=== PATIENT | male | born 1990 | race Caucasian/White ===

== ENCOUNTER 2019-03-17 19:43 | Emergency (ER) | payer OTHER ==
[~2019-03-17] VITALS: Ht 165.1 cm; Wt 74.8 kg
[~2019-03-17 19:43] MED LIST: ACET-787 PO
[2019-03-17 19:54] VITALS: BP 139/87
--- NOTE | 2019-03-17 20:03 | NUR ---
PT AMBULATED TO BED 12
--- NOTE | 2019-03-17 20:16 | NUR ---
BIB FAMILY. REPORTS CALLING 911 AT 9AM YESTERDAY AFTER HAVING AN EPISODE OF RAPID HEART RATE AND TINGING UP FROM THE BASE OF HIS SKULL. STATES HE WAS SEEN AT [facility] [place] AND SENT HOME. STATES IT STARTED AGAIN, LESS SEVERE, TODAY AT 1900.
[2019-03-17] MEDS ORDERED: LORazepam 2 MG/ML VIAL IM ONE (20:35)
--- NOTE | 2019-03-17 20:45 | NUR ---
PT TAKEN TO CT SCAN
[2019-03-17 21:35] VITALS: BP 118/80
--- NOTE | 2019-03-17 21:36 | NUR ---
Patient discharged with v/s stable. Written and verbal after care instructions given and explained. Patient verbalized understanding. Ambulatory with steady gait. All questions addressed prior to discharge. Advised to follow up with PMD.
== END 2019-03-17 21:36 | disposition home or self-care (01) ==
LOC: MED 19:43
DX: R00.2 Palpitations (principal); R51 Headache; R68.2 Dry mouth, unspecified; T45.2X5A Adverse effect of vitamins, initial encounter; Z79.891 Long term (current) use of opiate analgesic; Y92.89 Other specified places as the place of occurrence of the external cause
CPT/HCPCS: 70450; 96372; 99284; J2060

== ENCOUNTER 2019-05-09 20:10 | Emergency (ER) | payer OTHER ==
[~2019-05-09] VITALS: Ht 165.1 cm; Wt 72.1 kg
[2019-05-09 20:21] VITALS: BP 122/73
--- NOTE | 2019-05-09 20:25 | NUR ---
PT AMBULATED TO BED 11
--- NOTE | 2019-05-09 20:30 | NUR ---
PT CAME IN TO ER WITH C/O OF SOB DUE TO HAVING ANXIETY TODAY. PT STATED HE HAS BEEN FEELING LIKE THIS FOR ABOUT A FEW WEEKS. HE STATED HE HAS STOPPED DRINKING CAFFEINE AND ALCOHOL ABOUT ONE MONTH AGO. PT IS A/OX4. PAIN LEVEL IS ABOUT A 4/10 AT THIS TIME. ER MD MADE AWARE OF STATUS.
[2019-05-09] MEDS ORDERED: ALPRAZolam 0.5 MG TAB PO ONE (21:10)
--- NOTE | 2019-05-09 21:16 | NUR ---
EKG PERFORMED AT BEDSIDE
--- NOTE | 2019-05-09 21:18 | NUR ---
PT IS CURRENTLY TAKING DOXEPIN AND BACLOFIN, GIVEN BY HIS PCP.
[2019-05-09 22:17] VITALS: BP 132/70
== END 2019-05-09 22:17 | disposition home or self-care (01) ==
LOC: MED 20:10
DX: F41.9 Anxiety disorder, unspecified (principal); Z79.891 Long term (current) use of opiate analgesic
CPT/HCPCS: 93005; 99284

== ENCOUNTER 2019-05-18 12:29 | Emergency (ER) | payer OTHER ==
[~2019-05-18] VITALS: Ht 165.1 cm; Wt 72.1 kg
[2019-05-18 12:54] VITALS: BP 120/75
--- NOTE | 2019-05-18 13:20 | NUR ---
DR. LOAIZA AT BEDSIDE
--- NOTE | 2019-05-18 13:20 | NUR ---
PT BIB SELF FOR ANXIETY AND NOT SLEEPING SINCE LAST NIGHT. PT AWAKE, ALERT AND CALM. PT TAKES TRAZADONE AND SERTALINE AT HOME BUT W/ NO RELIEF FROM S/S. NO SOB, CP. PT SITTING IN BED, FRIEND AT BEDSIDE.
[2019-05-18] MEDS ORDERED: LORazepam 2 MG/ML VIAL IM ONE (13:35)
[2019-05-18 13:43] LABS: BARBITURATE, URINE NEG. ng/ml (NEG <=200); BENZODIAZEPINE, URINE NEG. ng/mL (NEG <=200); CANNABINOID, URINE NEG. ng/mL (NEG <=50); COCAINE, URINE NEG. ng/mL (NEG <=300); OPIATE, URINE NEG. ng/mL (NEG <=2000); PHENCYCLIDINE SCREEN,URINE NEG. ng/mL (NEG <=25)
[2019-05-18 15:46] VITALS: BP 111/69
--- NOTE | 2019-05-18 15:46 | NUR ---
Patient discharged with v/s stable. Written and verbal after care instructions given and explained. Patient alert, oriented and verbalized understanding of instructions. Ambulatory with steady gait. All questions addressed prior to discharge. ID band removed. Patient advised to follow up with PMD. Rx of VISTARIL given. Patient educated on indication of medication including possible reaction and side effects. Opportunity to ask questions provided and answered.
== END 2019-05-18 15:46 | disposition home or self-care (01) ==
LOC: MED 12:29
DX: F41.9 Anxiety disorder, unspecified (principal); R00.2 Palpitations; Z79.899 Other long term (current) drug therapy
CPT/HCPCS: 80305; 96372; 99284; J2060

== ENCOUNTER 2019-05-24 17:40 | Emergency (ER) | payer OTHER ==
[~2019-05-24] VITALS: Ht 166.4 cm; Wt 70.8 kg
[2019-05-24 18:01] VITALS: BP 141/63
--- NOTE | 2019-05-24 18:08 | NUR ---
PT TO WAIT IN ER LOBBY. VSS AT THIS TIME. [id number]. RR EVEN AN UNLABORED.
[2019-05-24] MEDS ORDERED: TRAZ-343 PO (18:10)
[2019-05-24] MEDS ORDERED: HYDR25CA1 PO (18:12)
[2019-05-24] MEDS ORDERED: SERT25TA PO (18:12)
--- NOTE | 2019-05-24 18:40 | NUR ---
PATIENT AMBULATED TO ER BED 12
--- NOTE | 2019-05-24 18:52 | NUR ---
PT PRESENTS TO ED WITH C/O EPIGASTRIC BURNING AND HEART PALPATATIONS SINCE LAST NIGHT. -N/V/D. PATIENT STATES HE STARTED THE SERTRALINE AND TRAZADONE ON 05/16/19. DENIES PAIN AT THIS TIME. PMH- ANXIETY RX- SERTRALINE 25 MG, HYDROXYZINE 25 MG, TRAZADONE 50 MG
[2019-05-24 19:19] LABS: APPEARANCE,URINE CLEAR (CLEAR); BILIRUBIN,URINE NEGATIVE (NEGATIVE); BLOOD, URINE NEGATIVE (NEGATIVE); COLOR,URINE YELLOW (YELLOW); LEUKOCYTE ESTERASE ,URINE NEGATIVE (NEGATIVE); NITRITE, URINE NEGATIVE (NEGATIVE); PH,URINE 6.5 (5.0-9.0); UGLUCOSE NEGATIVE (NEGATIVE)
[2019-05-24 19:21] LABS: BARBITURATE, URINE NEG. ng/ml (NEG <=200); BENZODIAZEPINE, URINE NEG. ng/mL (NEG <=200); CANNABINOID, URINE NEG. ng/mL (NEG <=50); COCAINE, URINE NEG. ng/mL (NEG <=300); OPIATE, URINE NEG. ng/mL (NEG <=2000); PHENCYCLIDINE SCREEN,URINE NEG. ng/mL (NEG <=25)
[2019-05-24 19:43] VITALS: BP 108/69
--- NOTE | 2019-05-24 19:43 | NUR ---
Patient discharged with v/s stable. Written and verbal after care instructions given and explained. Patient alert, oriented and verbalized understanding of instructions. Ambulatory with steady gait. All questions addressed prior to discharge. ID band removed. Patient advised to follow up with PMD. Rx of Prilosec given. Patient educated on indication of medication including possible reaction and side effects. Opportunity to ask questions provided and answered.
== END 2019-05-24 19:43 | disposition home or self-care (01) ==
LOC: MED 17:40
DX: K21.9 Gastro-esophageal reflux disease without esophagitis (principal); F41.9 Anxiety disorder, unspecified; Z98.890 Other specified postprocedural states; Z79.899 Other long term (current) drug therapy
CPT/HCPCS: 80305; 81003; 99283

== ENCOUNTER 2019-05-27 19:03 | Emergency (ER) | payer OTHER ==
[~2019-05-27] VITALS: Ht 165.1 cm; Wt 72.1 kg
[~2019-05-27 19:03] MED LIST changes: +HYDR25CA1 PO; +SERT25TA PO; +TRAZ-343 PO
[2019-05-27 19:09] VITALS: BP 126/73
--- NOTE | 2019-05-27 19:19 | NUR ---
PT AMBULATED TO BED 9.
--- NOTE | 2019-05-27 19:51 | NUR ---
29 YO M ERENDIRA SELF PRESENTS TO ED C/O SOB, 5/10 RIGHT SIDE CHEST PAIN, AND INTERMITTENT LIGHT HEADEDNESS X 1 DAY. PT STATES HE HAS BEEN SEEN FOR SIMILAR S/SX AND HAS BEEN DEALING WITH THESE ISSUES SINCE MAR, 2018. PT REPORTS HE WAS PUT ON SERTRALINE AND TRAZADONE FOR ANXIETY/DEPRESSION ALTHOUGH PT STATES HE "DOESN'T FEEL DEPRESSED". PT STATES HE HAS STOPPED DRINKING ALCOHOL, CAFFEINE AND EXERCISES REGULARLY. DENIES RECREATIONAL DRUG USE. -- PT AWAKE, ALERT, CALM, COOPERATIVE. ANSWERS QUESTIONS APPROPRIATELY. BEHAVIOR AGE APPROPRIATE. -- SKIN PINK, WARM, DRY. BREATHING EVEN, UNLABORED. PMH-- DENIES Addendum: 05/27/19 at 2136 by [facility]A. NO S/SX INCREASED WOB.
[2019-05-27 21:18] LABS: BASOPHILS % (AUTO) 0.7 % (0.0-2.0); EOSINOPHILS # (AUTO) 0.3 K/uL (0-0.4); HEMATOCRIT 43.3 % (36-52); HEMOGLOBIN 14.7 g/dL (12.0-18.0); LYMPHOCYTES # (AUTO) 1.2 K/uL (2.0-11.5); LYMPHOCYTES % (AUTO) 17.6 % (20.5-51.1); MEAN CORPUSCULAR HEMOGLOBIN 31 pg (27-31); MEAN CORPUSCULAR HGB CONC 34 g/dL (33-37); MEAN CORPUSCULAR VOLUME 89.9 fL (80-94); MONOCYTES # (AUTO) 0.6 K/uL (0.8-1.0); MONOCYTES % (AUTO) 8.6 % (1.7-9.3); NEUTROPHILS # (AUTO) 4.9 K/uL (1.8-7.7); NEUTROPHILS % (AUTO) 69.1 % (42.2-75.2); PLATELET COUNT (AUTO) 200 K/uL (140-450); RED BLOOD CELL COUNT(AUTO) 4.82 MIL/uL (4.20-6.10); RED CELL DISTRIBUTION WIDTH 13.1 % (11.6-13.7); WHITE BLOOD COUNT (AUTO) 7.1 K/uL (4.8-10.8)
[2019-05-27 21:29] LABS: ANION GAP 16.3 (8-16); CARBON DIOXIDE 25.4 mmol/L (21-32); CREATININE 0.8 mg/dL (0.7-1.3); POTASSIUM 3.7 mmol/L (3.5-5.1)
--- NOTE | 2019-05-27 21:30 | NUR ---
LAB DRAWING BLOOD AT BEDSIDE.
[2019-05-27 21:34] LABS: ALBUMIN 3.9 g/dL (3.4-5.0); TOTAL BILIRUBIN 1.1 mg/dL (0.0-1.0)
--- NOTE | 2019-05-27 22:20 | NUR ---
XRAY AT BEDSIDE.
[2019-05-27 23:53] VITALS: BP 131/88
== END 2019-05-27 23:53 | disposition home or self-care (01) ==
LOC: MED 19:03
DX: R07.89 Other chest pain (principal); R06.02 Shortness of breath; R42 Dizziness and giddiness; R20.2 Paresthesia of skin; F41.9 Anxiety disorder, unspecified; Z79.899 Other long term (current) drug therapy
CPT/HCPCS: 36415; 71046; 80053; 83690; 84443; 84484; 85025; 93005; 99284

== ENCOUNTER 2019-06-19 04:25 | Emergency (ER) | payer OTHER ==
[~2019-06-19] VITALS: Ht 165.1 cm; Wt 74.8 kg
[~2019-06-19 04:25] MED LIST changes: -ACET-787 PO; -HYDR25CA1 PO
[2019-06-19 04:28] VITALS: BP 133/79
--- NOTE | 2019-06-19 04:28 | NUR ---
TO BED # 04 AMBULATORY
--- NOTE | 2019-06-19 04:40 | NUR ---
29 YO M BIB SELF C/O S/SX ANXIETY. PT HAS BEEN SEEN HERE MULTIPLE TIMES FOR SIMILAR S/SX. PT STATES HE TAPERED HIMSELF OFF OF TRMADOL AND SETRILINE X 1 WEEK AGO BECAUSE HE DOESN'T "FEEL DEPRESSED". PT STATES HE HAS NOT FOLLOW UP WITH HIS DOCTOR REGARDING HIS ANXIETY. PT ALSO STATES HE HAS RX FOR LORAZEPAM AT HOME BUT HAS NOT TAKEN IT BECAUSE HE "DIDN'T KNOW HOW MUCH TO TAKE". PROVIDED PT WITH EDUCATION REGARDING FOLLOWING INSTRUCTION ON RX BOTTLE NEEDED FOR S/SX ANXIETY. PT IS CALM, COOPERATIVE. SKIN PINK, WARM, DRY. BREATHING EVEN, UNLABORED. SPO2 97% ON RA.
--- NOTE | 2019-06-19 05:12 | NUR ---
DR. NEWTON EVALUATING PT
[2019-06-19 05:14] VITALS: BP 133/79
--- NOTE | 2019-06-19 05:14 | NUR ---
Patient discharged with v/s stable. Written and verbal after care instructions given and explained. Patient verbalized understanding. Ambulatory with steady gait. All questions addressed prior to discharge. Advised to follow up with PMD. Discharged by Dr. Hines.
[2019-06-19] MEDS: LORazepam 1 MG TAB PO ONE (05:20)
== END 2019-06-19 05:14 | disposition home or self-care (01) ==
LOC: MED 04:25
DX: F41.9 Anxiety disorder, unspecified (principal); Z79.899 Other long term (current) drug therapy
CPT/HCPCS: 99282

== ENCOUNTER 2019-07-09 20:47 | Emergency (ER) | payer OTHER ==
[~2019-07-09] VITALS: Ht 165.1 cm; Wt 77.1 kg
[2019-07-09 21:00] VITALS: BP 152/94
--- NOTE | 2019-07-10 00:02 | NUR ---
PT CALLED. NO REPONSE
--- NOTE | 2019-07-10 00:07 | NUR ---
PT CALLED. NO RESPONSE.
--- NOTE | 2019-07-10 00:11 | NUR ---
PT CALLED. NO RESPONSE. PT LWBS AT 0002
== END 2019-07-10 00:02 | disposition left against medical advice (07) ==
LOC: MED 20:47
DX: F41.9 Anxiety disorder, unspecified (principal); R42 Dizziness and giddiness; R06.02 Shortness of breath; R20.0 Anesthesia of skin; R00.2 Palpitations; Z53.21 Procedure and treatment not carried out due to patient leaving prior to being seen by health care provider

== ENCOUNTER 2021-04-13 21:54 | Emergency (ER) | payer OTHER ==
[~2021-04-13] VITALS: Ht 165.1 cm; Wt 88.5 kg
[2021-04-13 21:57] VITALS: BP 146/82
--- NOTE | 2021-04-13 22:02 | NUR ---
PT TAKEN TO BED 2
--- NOTE | 2021-04-13 22:09 | NUR ---
PT BIB SELF FOR C/O RUQ PAIN WHEN "BEARING DOWN" OR "PUSHING" X 2 DAYS. PT REPORTS 7/10 PAIN THAT IS SHARP, DOES NOT RADIATE. PT DENIES OTC PAIN MEDICATION. DENIES N/V/D, FEVER, CHILLS. DENIES INJURY. REPORTS BM 04/13/21 WITHOUT DIFFICULTY. DENIES APPETITE CHANGES OR ABDOMINAL PAIN FOLLOWING MEAL TIME. ABDOMEN IS SOFT, FLAT AND NONTENDER. SEE COMPLETE ASSESSMENT FOR FURTHER DETAILS. MED HX: DENIES ALLERGIES: NKA
--- NOTE | 2021-04-13 22:24 | NUR ---
URINE SAMPLE TAKEN TO LAB AND HAND GIVEN TO DARRYN SUNSHINE TECH.
[2021-04-13 22:30] LABS: APPEARANCE,URINE CLEAR (CLEAR); BILIRUBIN,URINE NEGATIVE (NEGATIVE); BLOOD, URINE NEGATIVE (NEGATIVE); COLOR,URINE YELLOW (YELLOW); LEUKOCYTE ESTERASE ,URINE NEGATIVE (NEGATIVE); NITRITE, URINE NEGATIVE (NEGATIVE); PH,URINE 6.5 (5.0-9.0); UGLUCOSE NEGATIVE (NEGATIVE)
--- NOTE | 2021-04-13 22:30 | NUR ---
Nereyda bear in ED - 04/13/21 at 2349 by [email or web address] EMRD AT BEDSIDE.
--- NOTE | 2021-04-14 | NUR ---
ERMD AT BEDSIDE.
[2021-04-14] MEDS ORDERED: ACETAMINOPHEN EXTRA STRENGTH 500 MG TAB PO ONE (00:10)
--- NOTE | 2021-04-14 00:30 | NUR ---
PT TAKEN TO XRAY.
--- NOTE | 2021-04-14 00:34 | NUR ---
PT RETURNED FROM XRAY VIA W.C.
--- NOTE | 2021-04-14 00:55 | NUR ---
ULTRASOUND AT BEDSIDE.
[2021-04-14] MEDS ORDERED: MAGNESIUM CITRATE 300 ML BTL PO ONE (02:15)
--- NOTE | 2021-04-14 03:40 | NUR ---
PER DONATO DOWNS TO D/C W/O FINAL ULTRASOUND REPORT AT THIS TIME.
[2021-04-14 03:41] VITALS: BP 125/76
== END 2021-04-14 03:41 | disposition home or self-care (01) ==
LOC: MED 21:54
DX: R10.11 Right upper quadrant pain (principal); Z79.899 Other long term (current) drug therapy
CPT/HCPCS: 74018; 76705; 81003; 99285

== ENCOUNTER 2021-04-23 15:41 | Emergency (ER) | payer OTHER ==
[~2021-04-23] VITALS: Ht 165.1 cm; Wt 86.2 kg
[2021-04-23 15:45] VITALS: BP 154/73
--- NOTE | 2021-04-23 15:49 | NUR ---
Ambulated to bed 11
--- NOTE | 2021-04-23 15:54 | NUR ---
30/M presents to ED with c/o chest pain. Patient states he began having intermittent chest pain and shortness of breath 3 days ago while having breakfast. Patient describes it as a 5/10 pressure or pinching pain. Patient states while the pain is present he has periods of shortness of breath, patient denies pain or shortness of breath at this time. Patient denies abdominal pain, nausea, vomiting or diarrhea. Patient alert and oriented x4 and answering questions appropriately, patient placed in gown, EKG being performed bedside.
--- NOTE | 2021-04-23 16:05 | NUR ---
Dr. Cabrera bedside evaluating patient.
--- NOTE | 2021-04-23 16:33 | NUR ---
X-ray at bedside
[2021-04-23 16:53] LABS: BASOPHILS % (AUTO) 0.5 % (0.0-2.0); EOSINOPHILS # (AUTO) 0.2 K/uL (0-0.4); HEMATOCRIT 46.1 % (36-52); LYMPHOCYTES # (AUTO) 1.5 K/uL (2.0-11.5); LYMPHOCYTES % (AUTO) 18.5 % (20.5-51.1); MEAN CORPUSCULAR HEMOGLOBIN 31 pg (27-31); MEAN CORPUSCULAR HGB CONC 35 g/dL (33-37); MEAN CORPUSCULAR VOLUME 88.3 fL (80-94); MONOCYTES # (AUTO) 0.4 K/uL (0.8-1.0); NEUTROPHILS # (AUTO) 6.1 K/uL (1.8-7.7); PLATELET COUNT (AUTO) 240 K/uL (140-450); RED BLOOD CELL COUNT(AUTO) 5.23 MIL/uL (4.20-6.10); RED CELL DISTRIBUTION WIDTH 12.7 % (11.6-13.7); WHITE BLOOD COUNT (AUTO) 8.3 K/uL (4.8-10.8)
[2021-04-23 17:02] LABS: ANION GAP 15.5 (8-16); CARBON DIOXIDE 26.7 mmol/L (21-32); CREATININE 0.9 mg/dL (0.6-1.3); POTASSIUM 4.2 mmol/L (3.5-5.1)
[2021-04-23 17:07] LABS: TOTAL BILIRUBIN 1.8 mg/dL (0.0-1.0)
[2021-04-23] MEDS ORDERED: HYDR25CA1 PO (17:17)
[2021-04-23 17:28] VITALS: BP 122/76
--- NOTE | 2021-04-23 17:28 | NUR ---
Patient discharged with v/s stable. Written and verbal after care instructions given and explained. Patient alert, oriented and verbalized understanding of instructions. Ambulatory with steady gait. All questions addressed prior to discharge. ID band removed. Patient advised to follow up with PMD. Rx of Vistaril given. Patient educated on indication of medication including possible reaction and side effects. Opportunity to ask questions provided and answered.
== END 2021-04-23 17:28 | disposition home or self-care (01) ==
LOC: MED 15:41
DX: R07.9 Chest pain, unspecified (principal)
CPT/HCPCS: 36415; 71045; 80053; 83690; 84484; 85025; 93005; 99285

== ENCOUNTER 2021-06-06 11:52 | Emergency (ER) | payer OTHER ==
[~2021-06-06] VITALS: Ht 165.1 cm; Wt 86.2 kg
[~2021-06-06 11:52] MED LIST changes: +HYDR25CA1 PO
[2021-06-06 11:58] VITALS: BP 116/87
[2021-06-06] MEDS ORDERED: OMEP40EC24 PO (12:11)
[2021-06-06 12:19] VITALS: BP 116/87
== END 2021-06-06 12:20 | disposition home or self-care (01) ==
LOC: MED 11:52
DX: R10.13 Epigastric pain (principal)
CPT/HCPCS: 81002; 99283

== ENCOUNTER 2021-06-09 12:45 | Emergency (ER) | payer OTHER ==
[~2021-06-09] VITALS: Ht 165.1 cm; Wt 86.2 kg
[~2021-06-09 12:45] MED LIST changes: +OMEP40EC24 PO
[2021-06-09 12:53] VITALS: BP 122/88
--- NOTE | 2021-06-09 12:58 | NUR ---
PT AMBULATED TO BED 2
--- NOTE | 2021-06-09 13:21 | NUR ---
31 Y/O MALE C/O ABDOMINAL PAIN X 8 DAYS. PT STATES HE WAS PREVIOUSLY HERE FOR ABDOMINAL PAIN X4DYS AGO. SYMPTOMS ARE NOT RELIEVED AFTER PRESCRIPTIONS GIVEN. PT STATES LUQ PAIN TODAY 05/24 DESCRIBES BURNING AND RADIATES TO BACK. PT DENIES N/V/D. DENIES FEVER/CHILLS. DENIES PMH NKA
[2021-06-09] MEDS ORDERED: FAMO-92 PO (13:26)
--- NOTE | 2021-06-09 13:26 | NUR ---
Dr. Laws at pt bedside for further evaluation.
[2021-06-09 13:43] VITALS: BP 122/88
--- NOTE | 2021-06-09 13:43 | NUR ---
Patient discharged with v/s stable. Written and verbal after care instructions given gastritis and explained. Patient alert, oriented and verbalized understanding of instructions. Ambulatory with steady gait. All questions addressed prior to discharge. ID band removed. Patient advised to follow up with PMD. Rx of pepcid 40mg po daily given. Patient educated on indication of medication including possible reaction and side effects. Opportunity to ask questions provided and answered.
== END 2021-06-09 13:39 | disposition home or self-care (01) ==
LOC: MED 12:45
DX: R10.12 Left upper quadrant pain (principal); Z79.899 Other long term (current) drug therapy
CPT/HCPCS: 81002; 99283

== ENCOUNTER 2022-02-11 09:55 | Emergency (ER) | payer OTHER ==
[~2022-02-11] VITALS: Ht 165.1 cm; Wt 88.1 kg
[~2022-02-11 09:55] MED LIST changes: +FAMO-92 PO
[2022-02-11 10:11] VITALS: BP 114/67
--- NOTE | 2022-02-11 10:14 | NUR ---
Patient ambulated to bed 10.
--- NOTE | 2022-02-11 10:24 | NUR ---
31 Y/O M AMBULATED TO BED 10, C/O LUQ PAIN X 1 MONTH. STATES HE TRIPPED IN FELL INTO A METAL PIPE WHILE AT WORK A MONTH AGO. HEALED SCRATCH OR SCAR RAMONE NOTED, PT STATES HE FEELS A BUMP, HE WAS SEEN AT [facility]RGENT [facility]ARE YESTERDAY AND TOLD TO COME TO ER. PMH: INGUINAL HERNIA REPAIR NKDA
--- NOTE | 2022-02-11 10:31 | NUR ---
Dr. Kelley at bedside to exam patient .
--- NOTE | 2022-02-11 11:22 | NUR ---
US AT BEDSIDE FOR EXAM
--- NOTE | 2022-02-11 12:10 | NUR ---
US FINISHED, PT AMBULATED TO RESTROOM WITH STEADY GAIT
[2022-02-11 13:05] VITALS: BP 131/79
== END 2022-02-11 13:05 | disposition home or self-care (01) ==
LOC: MED 09:55
DX: R10.12 Left upper quadrant pain (principal); Z98.890 Other specified postprocedural states; Z79.899 Other long term (current) drug therapy
CPT/HCPCS: 76700; 81002; 99284; Q0092

== ENCOUNTER 2022-09-01 17:51 | Emergency (ER) | payer OTHER ==
[~2022-09-01] VITALS: Ht 165.1 cm; Wt 86.2 kg
[2022-09-01 18:29] VITALS: BP 140/74
[2022-09-01] MEDS ORDERED: KETOROLAC 30 MG/ML VIAL IM ONE (19:00)
--- NOTE | 2022-09-01 19:01 | NUR ---
KIKI GRIGGS examining patient.
[2022-09-01 19:08] LABS: BASOPHILS # (AUTO) 0.1 K/uL (0.00-0.22); BASOPHILS % (AUTO) 0.6 % (0.0-2.0); EOSINOPHILS # (AUTO) 0.2 K/uL (0-0.4); EOSINOPHILS % (AUTO) 2.6 % (0.0-4.0); HEMOGLOBIN 15.6 g/dL (12.0-18.0); LYMPHOCYTES # (AUTO) 1.6 K/uL (2.0-11.5); MEAN CORPUSCULAR HEMOGLOBIN 31 pg (27-31); MEAN CORPUSCULAR HGB CONC 35 g/dL (33-37); MEAN CORPUSCULAR VOLUME 88.4 fL (80-94); MONOCYTES # (AUTO) 0.5 K/uL (0.8-1.0); NEUTROPHILS # (AUTO) 6.2 K/uL (1.8-7.7); NEUTROPHILS % (AUTO) 71.8 % (42.2-75.2); PLATELET COUNT (AUTO) 225 K/uL (140-450); RED BLOOD CELL COUNT(AUTO) 5.09 MIL/uL (4.20-6.10); RED CELL DISTRIBUTION WIDTH 12.6 % (11.6-13.7); WHITE BLOOD COUNT (AUTO) 8.6 K/uL (4.8-10.8)
[2022-09-01 19:19] LABS: APPEARANCE,URINE CLEAR (CLEAR); BILIRUBIN,URINE NEGATIVE (NEGATIVE); BLOOD, URINE NEGATIVE (NEGATIVE); COLOR,URINE YELLOW (YELLOW); LEUKOCYTE ESTERASE ,URINE NEGATIVE (NEGATIVE); NITRITE, URINE NEGATIVE (NEGATIVE); UGLUCOSE NEGATIVE (NEGATIVE)
[2022-09-01 19:32] LABS: ANION GAP 10.7 (8-16); CREATININE 1.1 mg/dL (0.6-1.3); POTASSIUM 4.7 mmol/L (3.5-5.1); TOTAL BILIRUBIN 1.3 mg/dL (0.0-1.0)
[2022-09-01] MEDS ORDERED: ACET-8386 PO (20:26)
[2022-09-01] MEDS ORDERED: IBUP-2213 PO (20:26)
[2022-09-01 21:37] VITALS: BP 132/74
--- NOTE | 2022-09-01 21:37 | NUR ---
Patient discharged with v/s stable. Written and verbal after care instructions given and explained for Kidney stones. Patient alert, oriented and verbalized understanding of instructions. Ambulatory with steady gait. All questions addressed prior to discharge. ID band removed. Patient advised to follow up with PMD. Rx of Ibuprofen and [place] given. Patient educated on indication of medication including possible reaction and side effects. Opportunity to ask questions provided and answered.
== END 2022-09-01 21:37 | disposition home or self-care (01) ==
LOC: MED 17:51
DX: N20.0 Calculus of kidney (principal); R10.32 Left lower quadrant pain; Z79.899 Other long term (current) drug therapy
CPT/HCPCS: 36415; 80053; 81003; 85025; 99284

== ENCOUNTER 2022-10-24 09:37 | Emergency (ER) | payer OTHER ==
[~2022-10-24] VITALS: Ht 165.1 cm; Wt 85.7 kg
[~2022-10-24 09:37] MED LIST changes: +ACET-8386 PO; +IBUP-2213 PO
[2022-10-24 09:42] VITALS: BP 134/84
--- NOTE | 2022-10-24 09:49 | NUR ---
COVID, FLU SWABS DONE.
--- NOTE | 2022-10-24 09:50 | NUR ---
PT AMB TO BED 12.
[2022-10-24] MEDS ORDERED: KETOROLAC 30 MG/ML VIAL IM ONE (10:20)
[2022-10-24] MEDS ORDERED: NAPR-54 PO (10:45)
== END 2022-10-24 11:09 | disposition home or self-care (01) ==
LOC: MED 09:37
DX: R09.1 Pleurisy (principal); Z20.822 Contact with and (suspected) exposure to COVID-19
CPT/HCPCS: 71046; 87426; 87804; 96372; 99284; J1885

== ENCOUNTER 2022-12-12 17:26 | Emergency (ER) | payer OTHER ==
[~2022-12-12] VITALS: Ht 165.1 cm; Wt 86.2 kg
[~2022-12-12 17:26] MED LIST changes: -ACET-8386 PO; +ACET-8905 PO; +NAPR-54 PO
[2022-12-12 17:58] VITALS: BP 121/79
--- NOTE | 2022-12-12 21:47 | NUR ---
PT CALLED IN LOBBY AND OUTSIDE WITH NO ANSWER. PT LWBS
== END 2022-12-12 21:47 | disposition left against medical advice (07) ==
LOC: MED 17:26
DX: R07.9 Chest pain, unspecified (principal); Z53.21 Procedure and treatment not carried out due to patient leaving prior to being seen by health care provider
CPT/HCPCS: 93005

== ENCOUNTER 2022-12-15 08:39 | Emergency (ER) | payer OTHER ==
[~2022-12-15] VITALS: Ht 165.1 cm; Wt 87.7 kg
[2022-12-15 08:48] VITALS: BP 119/77
--- NOTE | 2022-12-15 08:52 | NUR ---
PT AMB TO BED 8.
--- NOTE | 2022-12-15 09:15 | NUR ---
PATIENT PRESENTS TO ED WITH CHEST PAIN . PT STATES IT IS 6/10 AT THIS TIME . DENIES N/V/D; SKIN IS PINK/WARM/DRY; AAOX4 WITH EVEN AND STEADY GAIT; LUNGS CLEAR BL; HR EVEN AND REGULAR; PT DENIES ANY FEVER, SOB, OR COUGH AT THIS TIME; VSS; PATIENT POSITIONED FOR COMFORT; HOB ELEVATED; BEDRAILS UP X2; BED DOWN. ER MD MADE AWARE OF PT STATUS.
[2022-12-15] MEDS ORDERED: NAPR-1704 PO (09:38)
[2022-12-15 10:06] VITALS: BP 127/74
== END 2022-12-15 09:51 | disposition home or self-care (01) ==
LOC: MED 08:39
DX: R07.9 Chest pain, unspecified (principal); Z72.89 Other problems related to lifestyle; Z98.890 Other specified postprocedural states
CPT/HCPCS: 71045; 93005; 99283

== ENCOUNTER 2023-07-06 14:01 | Emergency (ER) | payer OTHER ==
[~2023-07-06] VITALS: Ht 172.7 cm; Wt 78.9 kg
[~2023-07-06 14:01] MED LIST changes: +NAPR-1704 PO
[2023-07-06 14:26] VITALS: BP 137/75; PULSE 78; RESP 17; TEMP 97.4; O2SAT 98
[2023-07-06 15:20] LABS: BASOPHILS # (AUTO) 0.1 K/uL (0.00-0.22); BASOPHILS % (AUTO) 0.7 % (0.0-2.0); EOSINOPHILS # (AUTO) 0.8 K/uL (0-0.4); EOSINOPHILS % (AUTO) 10.8 % (0.0-4.0); HEMATOCRIT 44.1 % (36-52); LYMPHOCYTES # (AUTO) 1.5 K/uL (2.0-11.5); MEAN CORPUSCULAR HEMOGLOBIN 30 pg (27-31); MEAN CORPUSCULAR HGB CONC 34 g/dL (33-37); MEAN CORPUSCULAR VOLUME 89.6 fL (80-94); MONOCYTES # (AUTO) 0.4 K/uL (0.8-1.0); MONOCYTES % (AUTO) 5.3 % (1.7-9.3); NEUTROPHILS # (AUTO) 4.8 K/uL (1.8-7.7); NEUTROPHILS % (AUTO) 63.2 % (42.2-75.2); PLATELET COUNT (AUTO) 211 K/uL (140-450); RED BLOOD CELL COUNT(AUTO) 4.92 MIL/uL (4.20-6.10); WHITE BLOOD COUNT (AUTO) 7.6 K/uL (4.8-10.8)
[2023-07-06 15:38] LABS: ALBUMIN 3.7 g/dL (3.4-5.0); ANION GAP 13.1 (8-16); CALCIUM 8.6 mg/dL (8.5-10.1); CREATININE 0.9 mg/dL (0.6-1.3); POTASSIUM 4.1 mmol/L (3.5-5.1); TOTAL BILIRUBIN 1.1 mg/dL (0.0-1.0); TOTAL PROTEIN, SERUM 7.6 g/dL (6.4-8.2)
[2023-07-06 17:04] VITALS: BP 115/79; PULSE 74; RESP 17; O2SAT 98
== END 2023-07-06 17:30 | disposition home or self-care (01) ==
LOC: MED 14:01
DX: N20.0 Calculus of kidney (principal); Z79.899 Other long term (current) drug therapy
CPT/HCPCS: 36415; 80053; 81002; 83690; 85025; 99284

== ENCOUNTER 2023-07-28 06:40 | Emergency (ER) | payer OTHER ==
[~2023-07-28] VITALS: Ht 165.1 cm; Wt 81.6 kg
[2023-07-28 07:15] VITALS: BP 128/58; PULSE 77; RESP 18; TEMP 97.3; O2SAT 98
[2023-07-28] MEDS ORDERED: IBUPROFEN 600 MG TAB PO ONE (08:20)
== END 2023-07-28 10:18 | disposition home or self-care (01) ==
LOC: MED 06:40
DX: S62.315A Displaced fracture of base of fourth metacarpal bone, left hand, initial encounter for closed fracture (principal); S62.317A Displaced fracture of base of fifth metacarpal bone, left hand, initial encounter for closed fracture; X58.XXXA Exposure to other specified factors, initial encounter; Y93.89 Activity, other specified; Y92.89 Other specified places as the place of occurrence of the external cause; Y99.8 Other external cause status
CPT/HCPCS: 73130; 99283

== ENCOUNTER 2023-09-17 04:50 | Emergency (ER) | payer OTHER ==
[~2023-09-17] VITALS: Ht 165.1 cm; Wt 81.6 kg
[2023-09-17 05:17] VITALS: BP 109/73; PULSE 84; RESP 17; TEMP 97.7; O2SAT 96
== END 2023-09-17 06:11 | disposition left against medical advice (07) ==
LOC: MED 04:50
DX: R06.02 Shortness of breath (principal); R07.9 Chest pain, unspecified; Z53.21 Procedure and treatment not carried out due to patient leaving prior to being seen by health care provider
CPT/HCPCS: 93005; 99281